=== PATIENT | male | born 1955 | race Caucasian/White ===

== ENCOUNTER 2017-09-22 09:12 | Outpatient (CLI) | payer OTHER | END 2017-09-22 23:59 | disposition home or self-care (01) | LOC: RAD 09:12 | PROVIDERS: ATTEND Nurse Practitioner Family | DX: Z00.01 Encounter for general adult medical examination with abnormal findings (principal); Z23 Encounter for immunization; D17.30 Benign lipomatous neoplasm of skin and subcutaneous tissue of unspecified sites; I10 Essential (primary) hypertension; M25.569 Pain in unspecified knee; G45.4 Transient global amnesia; E78.2 Mixed hyperlipidemia; N52.01 Erectile dysfunction due to arterial insufficiency; M10.9 Gout, unspecified; N52.9 Male erectile dysfunction, unspecified; R56.9 Unspecified convulsions | CPT/HCPCS: 95819 ==